=== PATIENT | male | born 1985 | race Caucasian/White ===

== ENCOUNTER 2016-10-08 19:09 | Emergency (ER) | payer OTHER ==
[~2016-10-08] VITALS: Ht 177.8 cm; Wt 74.7 kg
[2016-10-08 19:17] VITALS: BP 125/70; PULSE 106; TEMP 36.7; O2SAT 95; Ht 177.8 cm; Wt 74.7 kg
--- NOTE | 2016-10-08 19:54 | DIAGNOSTIC IMAGING REPORT ---
RIGHT HAND MIN 3 VIEWS ROUTINE CLINICAL HISTORY: Right hand injury. COMPARISON: CT of the right hand January 05, 2012. FINDINGS: Alignment of the right hand is anatomic. There is no acute fracture. There is mild deformity of the base and proximal shaft of the right fourth metacarpal which reflects a healed fracture. Carpal bones are intact. IMPRESSION: No acute fracture or dislocation of the right hand. Electronically signed by: Jaylon Cheney M.D. 10/08/2016 7:53 PM Dictated Date/Time: 10/08/2016 7:51 PM
--- NOTE | 2016-10-10 15:53 | EMERGENCY ROOM VISIT NOTE ---
ED Visit Note First contact with patient: 19:20 Chief Complaint: Right hand pain. History of Present Illness: Mr. Resendiz is a 31-year-old white male who ambulates into the ED complaining of right hand pain over the fifth metacarpal. Historically patient reports he's had a previous boxer fracture of the right fifth metacarpal 4-5 years ago. Patient reports 4 days ago he was playing softball with his bare hands. He was catching and throwing the ball. Today after he was playing softball he noted pain and swelling over the posterior the right hand. Since that time he has been having increasing pain and bruising. Currently he describes his pain as a sharp sensation. He places it over the proximal aspect of the fifth metacarpal. He rates his discomfort 6/10. The pain is nonradiating. Pain worsens with palpation. He has not identified any alleviating factors related to the pain. He has not taken any medication for pain prior to arrival at the hospital. He denies any associated symptoms including forearm pain, carpal pain , other hand/finger pain, hand/finger weakness/numbness/tingling. Review of Systems: As noted above in history of present illness. Past Medical History: As previously noted and asthma. Current Medications: Patient denies. Allergies to Medications: Patient denies. Social History: Patient is currently employed; he feels safe in his home environment; he denies tobacco use. Physical Examination: Vital Signs: Date Time Temp Pulse Resp B/P (MAP) Pulse Ox O2 Delivery O2 Flow Rate FiO2 10/08/16 19:17 36.7 106 18 125/70 95 Room Air GENERAL: 31-year-old male in mild distress due to pain, nontoxic-appearing, afebrile and hemodynamically stable. NEUROLOGICAL: Awake, alert and oriented to person, place and time. Answering questions appropriately and following commands. Normal gait. Good hand eye coordination. SKIN: Warm, dry and pink. RIGHT HAND: No gross bony deformity. Moderate tenderness with swelling and bruising on the posterior aspect over the fifth metacarpal. I do not appreciate any bony deformities or crepitus. There is no tenderness over the MCP joint. No tenderness throughout carpal bones or any anatomical snuffbox. No tenderness or deformity of the fingers. Full range of motion against resistance of flexion and extension of the fourth and fifth MCP, PIP and DIP joint. Throughout the hand the skin was warm and pink and capillary refill is brisk. He was able to distinguish light sensations through all dermatomes. ED Course: Patient is assessed as noted above. Patient's medication list was reviewed. Right Hand X-Rays: Were read by myself and the radiologist showing no acute fractures or dislocations. Patient was placed in Ortho-Glass ulnar gutter splint. Patient was educated about today's findings and instructed on his treatment plan ; he verbalizes understanding and agreement with this plan. Clinical Impression: Right hand contusion and pain. Decision-Making: Initially my differential diagnosis I considered contusion, bony fracture, joint dislocation, ligamentous sprain, tenderness strain and other causes. Disposition: Patient discharged home in stable condition; prior to departure he was reassessed and subjectively reported that he was pain-free. Plan: Comfort measures including rest, ice, splint use and ibuprofen and acetaminophen were discussed with the patient. Patient was encouraged to follow-up with orthopedics if no better in 6-7 days. Patient was encouraged return the ED for worsening/uncontrolled pain, worsening swelling, worsening bruising, finger/hand weakness/numbness/tingling or any new/ concerning symptoms.
== END 2016-10-08 20:41 | disposition home or self-care (01) ==
LOC: C.EDB 19:10 → C.EDD 20:41
DX: S60.221A Contusion of right hand, initial encounter (principal); Y93.64 Activity, baseball; X58.XXXA Exposure to other specified factors, initial encounter; J45.909 Unspecified asthma, uncomplicated